=== PATIENT | male | born 1945 | race Caucasian/White ===

== ENCOUNTER → 2018-08-25 | Outpatient (CLI) | payer MEDICARE ==
[2018-08-25 15:01] LABS: CREATININE, SERUM 2.38 mg/dL (0.72-1.25)
== END ==
LOC: CT 13:52
PROVIDERS: ATTEND Internal Medicine Interventional Cardiology
DX: I71.4 Abdominal aortic aneurysm, without rupture (principal)
CPT/HCPCS: 36415; 82565; 84520

== ENCOUNTER → 2018-09-23 | Outpatient (CLI) | payer MEDICARE ==
[~2018-09-23] MED LIST: IOPAMIDOL 370 MG/ML 200 ML INFUS..BTL INJ ONE; SODIUM CHLORIDE 0.9% 100 ML 100 ML ONE; SODIUM CHLORIDE 0.9% 250ML 500 ML ONE
--- NOTE | 2018-09-23 22:29 | Diagnostic Imaging Report ---
EXAM: CTA ABDOMEN AND PELVIS WITH IV CONTRAST INDICATION: Follow-up AAA COMPARISON: None TECHNIQUE: The abdomen and pelvis were scanned using a multidetector helical scanner. Coronal and sagittal reformations were obtained. Dose modulation, iterative reconstruction, and/or weight based adjustment of the mA/kV was utilized to reduce the radiation dose to as low as reasonably achievable. CTA protocol performed with 3-D rotational images created on a separate workstation. IV Contrast: 100 cc S of view 370 Oral Contrast: None CTDIvol has been reviewed. It is below the limits set by the Radiation Protocol Committee (RPC). FINDINGS: LOWER THORAX: No consolidations. Right pleural calcifications. Bibasilar calcified granulomas. LIVER: Subcentimeter hypodensity right lobe of the liver that is too small to characterize. BILIARY: Normal gallbladder. No ductal dilation. SPLEEN: No masses PANCREAS: No masses ADRENALS: No nodules KIDNEYS: No enhancing masses. No hydronephrosis. GI TRACT: No wall thickening or obstruction. Normal appendix. VESSELS: Sample measurements of the abdominal aorta on axial plane are as follows: At the level of the diaphragmatic belem: 2.3 cm At the level of the celiac: 2.2 cm At the level of the superior mesenteric artery: 2.2 cm At the level of the renal arteries: 2.1 cm At the iliac bifurcation: 2.6 cm. There is a infrarenal abdominal aortic aneurysm arising 4 cm distal to the left renal vein and extending 5 cm to the bifurcation. Maximum aneurysm diameter is 4.5 cm with moderate posterior crescentic adherent thrombus. Mild calcified atherosclerotic changes of the abdominal aorta and pelvic vasculature. The right common iliac artery measures up to 1.5 cm and the left 1.3 cm. The bilateral external and internal iliac arteries are patent. The celiac, superior and inferior mesenteric arteries are patent. Bilateral single renal arteries are patent. PERITONEUM/RETROPERITONEUM: No free air or fluid LYMPH NODES: No lymphadenopathy REPRODUCTIVE ORGANS: Normal BLADDER: Normal SOFT TISSUES: Small left fat-containing inguinal hernia. BONES: No suspicious bone lesions. IMPRESSION: Infrarenal abdominal aortic aneurysm measuring 4.5 cm in maximum diameter. No evidence of rupture. No priors are available for comparison. Defer to ordering physician for timing of subsequent follow-up. Signed by: Dr. Barbara Nicole M.D. on 09/23/2018 10:25 PM
== END ==
LOC: CT 17:08
PROVIDERS: ATTEND Internal Medicine Interventional Cardiology
DX: I71.4 Abdominal aortic aneurysm, without rupture (principal)
CPT/HCPCS: 74174; J7050; Q9967; 96360

== ENCOUNTER → 2019-09-05 | Day surgery (SDC) | payer MEDICARE ==
[2019-08-31 10:40] LABS: ALBUMIN 3.9 g/dL (3.5-5.0); ALBUMIN/GLOBULIN RATIO 1.2 (0.8-2.0); ANION GAP 13.3 mmol/L (8-16); CALCIUM 10.4 mg/dL (8.4-10.2); CREATININE, SERUM 1.5 mg/dL (0.72-1.25); POTASSIUM 5.3 mmol/L (3.5-5.1)
[2019-08-31 12:50] LABS: BASOPHILS % 0.4 % (0.0-1.0); EOSINOPHILS # (AUTO) 0.1 (0.0-0.4); EOSINOPHILS % 1.2 % (0.0-6.0); HEMATOCRIT 53.7 % (38.2-49.6); HEMOGLOBIN 18.1 g/dL (14.0-18.0); LYMPHOCYTES % 25.4 % (18.0-39.1); MEAN CORPUSCULAR HEMOGLOBIN 29.1 pg (28-32); MEAN CORPUSCULAR HGB CONC 33.7 g/dL (31-35); MEAN CORPUSCULAR VOLUME 86.5 fL (81-99); MONOCYTES # (AUTO) 0.8 (0.2-0.8); MONOCYTES % 10.1 % (4.4-11.3); NEUTROPHILS # (AUTO) 4.9 (2.1-6.9); NEUTROPHILS % 62.8 % (38.7-80.0); PLATELET COUNT 235 x10e3/uL (140-360); RED BLOOD COUNT 6.21 x10e6/uL (4.3-5.7); RED CELL DISTRIBUTION WIDTH 13.3 % (11.7-14.4)
[2019-09-05] VITALS (8 sets, daily range): BP systolic 104–137; BP diastolic 62–85
[~2019-09-05] VITALS: Ht 170.2 cm; Wt 90.7 kg
[~2019-09-05] MED LIST changes: +ALPRAZOLAM 0.5 MG TAB ONE; +AMLODIPINE BESYL5 MG PO; +ASPIRIN81 MG PO; +ATORVASTATIN CA20 MG PO; +DIOVAN80 MG PO; +DIPHENHYDRAMINE HCL 25 MG CAP ONE; +FAMOTIDINE 20 MG/2 ML VIAL IV ONE; +FENTANYL CITRATE/PF 100MCG/2 ML INJ ONE; +HEPARIN SOD (PORCINE) 1000 UNIT/ML 30ML ONE; +HEPARIN SOD/SOD CHLORIDE 2,000 ML ONE; +LIDOCAINE HCL 2% LOCAL 20 ML VIAL ONE; +MELOXICAM7.5 MG PO; +METHYLPREDNISOLONE SOD SUCC 125 MG/2ML VIAL ONE; +METOPROLOL TART25 MG PO; +MIDAZOLAM HCL 2 MG/2 ML VIAL ONE; +NITROGLYCERIN/D5W 200 MCG/ML 250 ML ONE; -SODIUM CHLORIDE 0.9% 100 ML 100 ML ONE; +SODIUM CHLORIDE 0.9% 1000ML 1,000 ML ONE; -SODIUM CHLORIDE 0.9% 250ML 500 ML ONE; +SYNTHROID125 MCG PO; +VERAPAMIL HCL 2.5 MG/ML 2 ML VIAL ONE
--- OUTSIDE RECORDS SUMMARY | 2019-09-05 06:11 | XMS REPORT ---
Author Author [facility] Address Unknown Phone Unavailable Care Team Providers Care Seniour Insight Manager Name Role Phone KELLY ESPINAL Unavailable Unavailable Problems This patient has no known problems. Allergies, Adverse Reactions, Alerts This patient has no known allergies or adverse reactions. Medications This patient has no known medications. Results Test Description Test Time Test Comments Text Results Atomic Results Result Comments CTA ABD/PELVIS 2018-09-23 21:29:00 [place] [address] Patient Name: KERA SAVAGE MR #: [id number] : 1945 Age/Sex: 73/M Req #: [id number] Adm Physician: Ordered by: KELLY ESPINAL MD Report #: [id number] Location: CT Room/Bed: Procedure: [id number] CT/CTA ABD/PELVIS Exam Date: 09/23/18 Exam Time: 1901 REPORT STATUS: Signed EXAM: CTA ABDOMEN AND PELVIS WITH IV CONTRAST INDICATION: Follow-up AAA COMPARISON: None TECHNIQUE: The abdomen and pelvis were scanned using a multidetector helical scanner. Coronal and sagittal reformations were obtained. Dose modulation, iterative reconstruction, and/or weight based adjustment of the mA/kV was utilized to reduce the radiation dose to as low as reasonably achievable. CTA protocol performed with 3-D rotational images created on a separate workstation. IV Contrast: 100 cc S of view 370 Oral Contrast: None CTDIvol has been reviewed. It is below the limits set by the Radiation Protocol Committee (RPC). FINDINGS: LOWER THORAX: No consolidations. Right pleural calcifications. Bibasilar calcified granulomas. LIVER: Subcentimeter hypodensity right lobe of the liver that is too small to characterize. BILIARY: Normal gallbladder. No ductal dilation. SPLEEN: No masses PANCREAS: No masses ADRENALS: No nodules KIDNEYS: No enhancing masses. No hydronephrosis. GI TRACT: No wall thickening or obstruction. Normal appendix. VESSELS: Sample measurements of the abdominal aorta on axial plane are as follows: At the level of the diaphragmatic belem: 2.3 cm At the level of the celiac: 2.2 cm At the level of the superior mesenteric artery: 2.2 cm At the level of the renal arteries: 2.1 cm At the iliac bifurcation: 2.6 cm. There is a infrarenal abdominal aortic aneurysm arising 4 cm distal to the left renal vein and extending 5 cm to the bifurcation. Maximum aneurysm diameter is 4.5 cm with moderate posterior crescentic adherent thrombus. Mild calcified atherosclerotic changes of the abdominal aorta and pelvic vasculature. The right common iliac artery measures up to 1.5 cm and the left 1.3 cm. The bilateral external and internal iliac arteries are patent. The celiac, superior and inferior mesenteric arteries are patent. Bilateral single renal arteries are patent. PERITONEUM/RETROPERITONEUM: No free air or fluid LYMPH NODES: No lymphad enopathy REPRODUCTIVE ORGANS: Normal BLADDER: Normal SOFT TISSUES: Small left fat-containing inguinal hernia. BONES: No suspicious bone lesions. IMPRESSION: Infrarenal abdominal aortic aneurysm measuring 4.5 cm in maximum diameter. No evidence of rupture. No priors are available for comparison. Defer to ordering physician for timing of subsequent follow-up. Signed by: Dr. Allison Niño M.D. on 09/23/2018 10:25 PM Dictated By: ALLISON NIÑO MD 24 Transcribed By: VARGAS on 09/23/182224 COPY TO: KELLY ESPINAL MD
--- NOTE | 2019-09-05 07:28 | NUR ---
pt in CCL holding room 9, prepped for procedure. Alert oriented and appropriate, PERRLA, respirations even and unlabored to room air. Pulses x4 extremities equal and palpable. Cap fill brisk < 3 sec. { + modified barbeau and neurovascular function of right wrist } Skin warm and dry integrity appears intact in general. IV 20g to left hand started and presents healthy w/o s/s of infiltration or complaint. NS 0.9% started at 100ml/hr per dial flow. Abdomen soft and supple. pt offered toileting, denies need to urinate or defecate. Personal affects with patient. Family at bedside. Pt and family verbalizes understanding of POC. Pre-Op Meds benadryl and xanax, solumedrol and pepcid given. bed low and locked, side rails up x2 and call light at side. Awaiting for physician arrival
--- NOTE | 2019-09-05 08:57 | NUR ---
0857am Pt Received Rm # [id number],Bedside Report from Preethi.RN. Identfierx2. Back to baseline orientation.Oriented and appropriate.PERRLA,respirations even and unlabored on RA.Pulsesx4 PPx4PT/DP and marked.Cap refll brisk<3 sec. Skin warm and dry, integrity appears intact. IVg#20 in left arm at 200cc/hr via controller device.Presents healthy w/o s/s of infiltration or complaint.Abdomen soft and supple,pt offered toileting,denies need to urinate or defecate. No personal affects with patient. Family at bedside. Pt and family verbalize understanding of care. Currently w/o pain or need. ds/rn
--- NOTE | 2019-09-05 09:30 | NUR ---
0930RADIAL Compression removal: Initial Cuff volume 11 cc 0930 -2 cc Removed No hematoma/bleeding noted with normal neurovascular function. 0945 -4 cc Removed No hematoma/ bleeding noted with normal neurovascular function. 50852 -5cc Removed No hematoma/bleeding noted with normal neurovascular function. Air removal completed. Stasis achieved sterile 2x2,Tegaderm, Coban dressing No hematoma, bleeding noted with normal neurovascular function. Wrist splint in place. Pt instructed on POC. Ds/Rn
--- NOTE | 2019-09-05 10:30 | NUR ---
1030 Pt meets DC criteria. Rt Radial Tr band site and rt groin Mynx site assessed for s/s of complication and presence of hematoma. Skin warm, dry, no discolor, and pulses present. IV removed from Distal tip appears intact. VS WNL. Pt denies pain, sob, or need at this time. Family at bedside.. Review of discharge paperwork and follow up instructions. verbalized understanding. Pt to wheelchair and transported to front of hospital. Transferred to private vehicle under own strength w/o incident with DC paperwork in hand. -ds/rn
--- NOTE | 2019-09-05 13:14 | Operative Report ---
DATE OF PROCEDURE: 09/05/2019 SURGEON: Shen Conti MD INDICATIONS: Coronary artery disease, abnormal stress test. PROCEDURES PERFORMED: 1. Left heart catheterization, selective coronary angiography. 2. Deployment of right wrist TR band, right groin Mynx closure device. COMPLICATIONS: None. RECOMMENDATIONS: 1. CT angiogram of chest, abdomen, and pelvis with thoracoabdominal aortic aneurysm. 2. Referral for coronary artery bypass surgery. Conscious sedation time, 35 minutes. DESCRIPTION OF PROCEDURE: Access obtained in the right radial artery. A 5-Greek sheath was placed, inability to pass guidewire and catheter due to extreme tortuosity of the right brachial artery. Access was aborted. Access was then obtained in the right femoral artery. A JL5 catheter was used to cannulate the left coronary artery nonselectively. Left main mild calcified disease, stent in proximal left anterior descending artery with 99% in-stent restenosis. Diagonal artery ostial 80% stenosis. Ostial circumflex 90% stenosis. Mid circumflex 50% stenosis. Right coronary artery mild less than 20% stenosis. No intervention was deemed necessary. The patient is being referred for coronary artery bypass surgery. Right wrist TR band right groin Mynx closure device applied. The patient discharged home the same day. Shen Conti MD KSB/MODL /[id number]
== END | disposition home or self-care (01) ==
LOC: CATH LAB 06:08
PROVIDERS: ATTEND Internal Medicine Interventional Cardiology
DX: I25.10 Atherosclerotic heart disease of native coronary artery without angina pectoris (principal); R94.39 Abnormal result of other cardiovascular function study; I25.2 Old myocardial infarction; I71.4 Abdominal aortic aneurysm, without rupture; Z01.812 Encounter for preprocedural laboratory examination; Z79.82 Long term (current) use of aspirin; Z68.33 Body mass index [BMI] 33.0-33.9, adult; Z95.5 Presence of coronary angioplasty implant and graft; Z82.49 Family history of ischemic heart disease and other diseases of the circulatory system
CPT/HCPCS: 36415; 80053; 85025; 93454; C1760; C1769 ×3; C1887; J1644; J2001; J2250; J2930; J3010; J7030; Q9967

== ENCOUNTER → 2019-10-03 | Outpatient (CLI) | payer MEDICARE ==
[~2019-10-03] MED LIST changes: -ALPRAZOLAM 0.5 MG TAB ONE; -DIPHENHYDRAMINE HCL 25 MG CAP ONE; -FAMOTIDINE 20 MG/2 ML VIAL IV ONE; -FENTANYL CITRATE/PF 100MCG/2 ML INJ ONE; -HEPARIN SOD (PORCINE) 1000 UNIT/ML 30ML ONE; -HEPARIN SOD/SOD CHLORIDE 2,000 ML ONE; -LIDOCAINE HCL 2% LOCAL 20 ML VIAL ONE; -METHYLPREDNISOLONE SOD SUCC 125 MG/2ML VIAL ONE; -MIDAZOLAM HCL 2 MG/2 ML VIAL ONE; -NITROGLYCERIN/D5W 200 MCG/ML 250 ML ONE; +SODIUM CHLORIDE 0.9% 100 ML ONE; -SODIUM CHLORIDE 0.9% 1000ML 1,000 ML ONE; +SODIUM CHLORIDE 0.9% 250ML 0 ML ONE; +SODIUM CHLORIDE 0.9% 500ML 0 ML ONE; -VERAPAMIL HCL 2.5 MG/ML 2 ML VIAL ONE
[2019-10-03 09:11] LABS: ANION GAP 13.3 mmol/L (8-16); CALCIUM 9.9 mg/dL (8.4-10.2); CREATININE, SERUM 1.31 mg/dL (0.72-1.25); POTASSIUM 4.3 mmol/L (3.5-5.1)
--- NOTE | 2019-10-03 17:33 | Diagnostic Imaging Report ---
EXAM: CTA CHEST, ABDOMEN INDICATION: ABDOMINAL AORTIC ANEURYSM COMPARISON: CTA abdomen/pelvis from 09/23/2018 TECHNIQUE: Multi-detector CT technology was employed. Axial imaging of the chest and abdomen was performed after the administration of IV contrast in the arterial phase. Coronal and sagittal reformats were reviewed. RADIATION DOSE: Total DLP: 767.17 mGy*cm Dose modulation, iterative reconstruction, and/or weight based adjustment of the mA/kV was utilized to reduce the radiation dose to as low as reasonably achievable. FINDINGS: Vascular: Field Map Technician dimensions of the thoracic aorta are as follows: 2.4 cm at the aortic annulus 4.2 cm at the mid ascending aorta 3.5 cm at the distal ascending aorta 2.2 cm at the mid transverse arch 2.8 cm at the proximal descending thoracic aorta 2.4 cm at the diaphragmatic hiatus. The abdominal aorta measures: 2.2 cm at at the level of the celiac 2.2 cm at the mesenteric segment 2.0 cm at the renal segment Again identified is an infrarenal abdominal aortic aneurysm with maximal AP diameter of 4.5 cm, unchanged from the prior examination. The aneurysm spans 5 cm to the bifurcation. There is stable appearing posterior concentric anterior thrombus. The right common iliac artery measures 1.5 cm and the left common iliac artery measures 1.3 cm in maximum diameter. There is atherosclerotic plaquing with patent three-vessel arch. The celiac, SMA, DOMINIQUE, and single bilateral renal arteries are patent. Nonvascular: The thyroid and remaining visualized structures within the base of the neck demonstrate no significant abnormalities. The heart is not enlarged. There is no abnormal pericardial fluid. Calcified mediastinal lymph nodes are noted suggestive of prior granulomatous disease. There is no abnormal axillary, mediastinal, or hilar lymph node enlargement. The trachea and proximal airways are patent. Examination of the lungs is limited secondary to respiratory motion. Stable right pleural calcifications again noted. Calcified granulomas are noted bilaterally. There is no evidence for consolidation, pneumothorax, mass, or pleural effusion. The liver is normal in size and attenuation. A stable subcentimeter hypodensity is identified within the right hepatic lobe which is too small to definitively characterize. The gallbladder is unremarkable. There is no biliary ductal dilatation. The stomach, spleen, pancreas, and bilateral adrenal glands are unremarkable. The kidneys are normal in size and location and enhance symmetrically. There is no evidence for hydronephrosis. The visualized portions of the uterus ureters are normal caliber. The visualized loops of small and large bowel demonstrate no evidence of obstruction or inflammation. There is no ascites or intraperitoneal free air. No abnormally enlarged lymph nodes are identified within the abdomen. The osseous structures demonstrate no evidence for acute fracture or destructive process. IMPRESSION: 1. Stable infrarenal abdominal aortic aneurysm measuring up to 4.5 cm in maximal diameter, unchanged from the prior examination from 09/23/2018. Annual follow-up and vascular surgery consultation is recommended if not already obtained.. 2. Ectasia of the ascending thoracic aorta measuring up to 4.2 cm. Signed by: Dr. Henry Sarah MD on 10/03/2019 5:30 PM
== END ==
LOC: CT 08:00
PROVIDERS: ATTEND Internal Medicine Interventional Cardiology
DX: I71.4 Abdominal aortic aneurysm, without rupture (principal)
CPT/HCPCS: 36415; 71275; 74175; 80048; J7050; Q9967; J7040